=== PATIENT | female | born 1985 ===

== ENCOUNTER 2016-07-08 06:57 | Inpatient (IN) | payer MEDICAID ==
[2016-07-08] MEDS ORDERED: OXYTOCIN IN LR 500 ML IV ONE ×2 (07:44→08:23)
[2016-07-08 08:13] VITALS: BMI 29.0
[2016-07-08] MEDS ORDERED: IV START KIT ONE (08:22)
[2016-07-08] MEDS ORDERED: DINOPROSTONE 10 MG SUP VG ONE (08:22)
[2016-07-08] MEDS ORDERED: LIDOCAINE Viscous 2% 15 ML UDCUP ONE (08:23)
[2016-07-08] MEDS ORDERED: OXYTOCIN 10 UNITS/ML VIAL ONE (08:23)
[2016-07-08] MEDS ORDERED: PUMP TUBING ONE (08:23)
[2016-07-08] MEDS ORDERED: MINERAL OIL 25 ML BOT ONE (08:23)
[2016-07-08] MEDS ORDERED: SODIUM CHLORIDE 0.9% FLUSH 10 ML ONE (08:23)
[2016-07-08] MEDS ORDERED: LIDOCAINE 1% (PRES FREE) 30 ML VIAL ONE (08:23)
--- NOTE | 2016-07-08 08:27 | PDOC36 ---
Provider Note Note: cc: Admission H&P HPI: 30 y.o. year old ABNER 07/12/2016, by Last Menstrual Period at 39w3d with GDMA1 being admitted for induction of labor for borderline low fluid at 7.5 measured two days ago as well as a two vessel cord. REVIEW OF SYSTEMS GENERAL:~ No fever or headache EYES:~ No double or blurry vision. CARDIOVASCULAR:~ No chest pain. RESPIRATORY:~ No severe shortness of breath or cough. GASTROINTESTINAL:~ No nausea or vomiting or right upper quadrant pain.~ PSYCHIATRIC:~ No anxiety or depression. PROBLEMS Term Intrauterine GDMA1 Two Vessel Cord History of Abnormal Pap Smear OB HISTORY #: 1, Date: 04/02/10, Sex: Male, Weight: 3.36 kg (7 lb 6.5 oz), GA: 40w0d, Delivery: Vaginal, Spontaneous Delivery, Apgar1: None, Apgar5: None, Living: Yes , Comments: None #: 2, Current PSH No past surgical history on file. SOC HX Report that she has never smoked. She does not have any smokeless tobacco history on file. She reports that she does not drink alcohol or use illicit drugs. ALL Pork MEDICATIONS ~ [id number] ( VITAMINS PO), Take by mouth., Disp: , Rfl:~ PHYSICAL EXAMINATION VITAL SIGNS:~ AFVSS Estimated body mass index is 29.48 Total weight gain is 13.6 kg (29 lb 15.7 oz) FHT:~ 145 bpm moderate variability, positive accelerations, negative decelerations, category I [place]:~ Contractions q5-10 min SVE:~ /-3 GENERAL:~ No distress CARDIOVASCULAR:~ Regular rate and rhythm, no murmur, JVD or pedal edema. RESPIRATORY:~ Clear to auscultation bilaterally, respiratory effort is nonlabored at rest. GASTROINTESTINAL:~ Gravid no fundal tenderness NEUROLOGIC:~ Deep tendon reflexes are 2+ in the knees.~ Cranial nerves II-XII are grossly intact. PSYCHIATRIC:~ Alert and oriented x3, judgement and memory is intact, mood is pleasant. LABS & STUDIES O+ Antibody- Rubella Immune Hep B- HIV- GC/Chlamydia- Trep- Hgb 12.5 GBS Negative ULTRASOUNDS 20 wks - absent RT umbilical artery and two vessel cord. otherwise exam unremarkable with heart tone. 30 wks - Followup for 2 vessel cord - normal growth. 37 wks - normal growth vertex grade 3 placenta fundal normal ZHANG male 39 wks ZHANG 7.5 ASSESSMENT 30 y.o. year old ABNER 07/12/2016, by Last Menstrual Period at 39w3d with GDMA1 (controlled) here for induction for labor for borderline low fluid in the context of a two vessel cord. PLAN Induction of Labor: Cervical exam is 3 will start with some cervidil. GDMA1: controlled during , CBG this morning was, will continue to monitor for signs of hyperglycemia during labor and will monitor baby for hypoglycemia . Two Vessel Cord: Growth normal at 37 weeks, anatomy noted to be normal. Quad screen negative. :~ Yes Control: Undecided Pediatrics:~ Farzana Santo MD MPH
[2016-07-08 09:14] LABS: HEMATOCRIT 42.4 % (37.0-47.0); HEMOGLOBIN 14.3 gm/l (12.0-16.0); MEAN CELL VOLUME 85.7 fl (81.0-99.0); MEAN CORPUSCULAR HEMOGLOBIN 28.9 pg (27.0-31.0); MEAN CORPUSCULAR HGB CONC 33.7 g/dl (33.0-37.0); RED CELL DISTRIBUTION WIDTH 15.1 % (11.5-14.5)
--- NOTE | 2016-07-08 15:44 | PDOC36 ---
Provider Note Note: SUBJECTIVE: Pt in bed comfortable OBJECTIVE: VS: AFVSS FHT: 140s reactive [place]: Jamila intermittently SVE: DNE ASSESSMENT: 30 y.o. year old ABNER 07/12/2016, by Last Menstrual Period at 39w3d with GDMA1 (controlled) here for induction for labor for borderline low fluid in the context of a two vessel cord. PLAN Induction of Labor: FHTs are reassuring, cervidil in place. Will remove at 8: 30 pm tonight and recheck cervix. GDMA1: controlled during , CBG this morning was, will continue to monitor for signs of hyperglycemia during labor and will monitor baby for hypoglycemia . Two Vessel Cord: Growth normal at 37 weeks, anatomy noted to be normal. Quad screen negative.
[2016-07-08] MEDS ORDERED: LIDOCAINE 1% 2 ML VIAL PF ONE (19:49)
[2016-07-08] MEDS ORDERED: FLU VACC 2016-17 (36MO-64Y)/PF 60 MCG/0.5 ML SYRINGE IM V ONE (20:22)
[2016-07-08] MEDS ORDERED: LANOLIN 50 APPLIC/7G TUBE TP PRN (20:42)
[2016-07-08] MEDS ORDERED: BENZOCAINE/MENTHOL 60 APPLIC/BOT TP PRN (20:42)
[2016-07-08] MEDS ORDERED: LACTATED RINGERS 0 ML ONE (20:52)
[2016-07-08] MEDS ORDERED: MAGNESIUM HYDROXIDE 30 ML UDCUP PO PRN (20:53)
[2016-07-08] MEDS ORDERED: DOCUSATE SODIUM 100 MG CAPSULE PO PRN (20:53)
[2016-07-08] MEDS ORDERED: OXYCODONE/ACETAMINOPHEN 5/325 MG TABLET PO PRN (20:53)
[2016-07-08] MEDS ORDERED: HYDROCODONE/ACETAMINOPHEN 5/325MG TABLET PO PRN (20:53)
[2016-07-08] MEDS ORDERED: SENNOSIDES 8.6 MG TABLET PO PRN (20:53)
--- NOTE | 2016-07-08 20:58 | PCMDEL ---
Delivery Note - Delivery Delivery (Date): 07/08/16 Delivery (Time): 19:38 Infant Gender: Male Position: OA Umbilical Cord: 2 Vessel, Nuchal Cord Placenta:: 1945 EBL:: 250 mL Perineum:: 2nd degree perineal Suture:: 2-0 vicryl Anesthesia/Meds:: 1% lidocaine Length ROM:: 7 min Comments:: nuchal cord x 1 easily reduced on the perineum.
[2016-07-09] MEDS: IBUPROFEN 600 MG TABLET PO PRN ×2 (02:48→19:38)
[2016-07-09 06:52] LABS: HEMOGLOBIN 13.8 gm/l (12.0-16.0)
--- NOTE | 2016-07-09 09:52 | PDOC44 ---
- Subjective Day: 1 Reports Pain Tolerable, Reports , Reports Lochia Light, Reports Tolerating Regular Diet, Denies Nausea, Denies Fever - Objective Temp Pulse Resp BP Pulse Ox 97.1 F 76 16 111/62 07/09/16 08:19 07/09/16 08:19 07/09/16 08:19 07/09/16 08:19 Lab Results 07/09/16 06:45 Hgb 13.8 Hct 42.0 Current Medications Generic Name Dose Route Start Last Admin Trade Name Freq PRN Reason Stop Dose Admin Acetaminophen/Hydrocodone Bitart 1 - 2 tab 07/08/16 20:53 [place] 5/325 PO Q4H PRN Pain (Moderate) Benzocaine/Menthol 1 applic 07/08/16 20:42 Dermoplast TP PRN PRN Patient Comfort Docusate Sodium 100 mg 07/08/16 20:53 Colace PO DAILY PRN Comfort Emollient Ointment 1 applic 07/08/16 20:42 [id number] TP PRN PRN sore nipples Ibuprofen 600 mg 07/08/16 20:53 07/09/16 02:48 Motrin PO 600 mg Q6H PRN Administration Pain (Mild) Magnesium Hydroxide 30 ml 07/08/16 20:53 Milk Of Magnesia PO BEDTIME PRN Constipation Oxycodone/Acetaminophen 1 - 2 tab 07/08/16 20:53 Percocet 5/325 PO Q4H PRN Pain (Moderate) Senna 17.2 mg 07/08/16 20:53 Senokot PO BEDTIME PRN Comfort Sodium Chloride 10 ml 07/08/16 20:42 Normal Saline 10ml Flush IV PRN PRN IV Flush Sodium Chloride 10 ml 07/09/16 01:00 07/09/16 04:55 Normal Saline 10ml Flush IV Not Given Q8HR AUGUST[place] - Physical Exam General: Afebrile, No Acute Distress Psych/Mental Status: Mood/Affect Appropriate, Bonding Well Neurological: Alert, Oriented x 4 Lungs: Clear to Auscultation Bilaterally Cardiovascular: Regular Rate and Rhythm Breast: Nipples Intact Fundus: Firm, Midline Extremities: Full ROM, No Edema, No Tenderness Skin: Normal Color, Warm, Dry, Intact, No Rash - Problems:Assessment/Plan (1) (normal spontaneous vaginal delivery) Status: AcuteAssessment/Plan: Doing well. Routine PP care Support BF Anticipate DC tomorrow Disposition: Stable, Anticipate DC Home Tomorrow
[2016-07-10] MEDS: IBUPROFEN 600 MG TABLET PO PRN ×2 (05:55→14:59)
--- NOTE | 2016-07-10 09:38 | PDOC39B ---
Hospital Course: ADMIT DATE: 07/08/16 DISCHARGE DATE: 07/10/16 ADMISSION DIAGNOSES: IUP at term Borderline oligohydramnios 2V cord PROCEDURES: IOL for borderline oligohydramnios HISTORY OF PRESENT ILLNESS: 30 year old G2 T1 L1 at 39 weeks 3 days presenting for IOL for borderline oligohydramnios HOSPITAL COURSE: The patient was admitted for IOL. Progressed to complete and had uncomplicated . Uneventful PP course. By day of discharge the patient is ambulating, eating, voiding, and passing flatus without difficulty. Pain is controlled and lochia is appropriate. She is , with difficulty w latch. - Physical Exam Vital Signs: Temp Pulse Resp BP Pulse Ox 98.7 F 75 16 106/67 07/10/16 08:28 07/10/16 08:28 07/10/16 08:28 07/10/16 08:28 General: Afebrile, No Acute Distress Psych/Mental Status: Mood/Affect Appropriate, Judgment/Insight Intact, Bonding Well Neurological: Grossly Intact, Alert, Normal Speech HEENT: Atraumatic, Mucous membr. moist/pink Lungs: Clear to Auscultation Bilaterally Cardiovascular: Regular Rate and Rhythm Breast: Soft, Nipples Cracked (and scabbed R>L) Fundus: Firm, Midline, Below Umbilicus Skin: Normal Color, Warm, Dry, Intact, No Rash - Discharge Diagnosis (1) (normal spontaneous vaginal delivery) Status: AcuteAssessment/Plan: Doing well PPD#2. Routine PP care Support BF DC today PP precautions given Pelvic rest - Discharge Plan Condition: Good Disposition: Home Instruction Forms: Vaginal Discharge Instructions Prescriptions: Docusate Sodium [COLACE 100 MG CAPSULE ([facility])] 100 mg PO DAILY PRN #60 capsule PRN Reason: Comfort Benzocaine/Menthol [DERMOPLAST SPRAY ([facility])] 1 applic TP PRN PRN #1 bot PRN Reason: Patient Comfort Ibuprofen [IBUPROFEN 600 MG TABLET ([facility])] 600 mg PO Q6H PRN #60 tablet PRN Reason: Pain (Mild) Lanolin [LANOLIN 7 G TUBE ([facility])] 1 applic TP PRN PRN #1 tube PRN Reason: Sore Nipples Follow-Up: Dorian Santo Jr, MD [Staff Physician] - 07/11/16 (clinic to call to sched. And will need 6 wk PP exam as well.)
[2016-07-10 14:27] VITALS: BP 127/68
== END 2016-07-10 15:33 | disposition home or self-care (01) | DRG 774 ==
LOC: FBC 06:57 → EDSTATUS 07-12 16:13
PROVIDERS: ADMIT Family Medicine; ATTEND Family Medicine
PROC: 10E0XZZ Delivery of Products of Conception, External Approach (ICD-10-PCS; principal; 2016-07-08)
PROC: 0KQM0ZZ Repair Perineum Muscle, Open Approach (ICD-10-PCS; 2016-07-08)
PROC: 3E0P7GC Introduction of Other Therapeutic Substance into Female Reproductive, Via Natural or Artificial Opening (ICD-10-PCS; 2016-07-08)
DX: O41.03X0 Oligohydramnios, third trimester, not applicable or unspecified (principal); O24.02 Pre-existing type 1 diabetes mellitus, in childbirth; O69.9XX0 Labor and delivery complicated by cord complication, unspecified, not applicable or unspecified; E10.9 Type 1 diabetes mellitus without complications; O70.1 Second degree perineal laceration during delivery; Z3A.39 39 weeks gestation of pregnancy; Z37.0 Single live birth